=== PATIENT | female | born 1995 | race Caucasian/White ===

== ENCOUNTER 2018-04-26 14:34 | Emergency (ER) | payer OTHER ==
[~2018-04-26] VITALS: Ht 165.1 cm; Wt 59.0 kg
[2018-04-26] MEDS ORDERED: PHENERGAN 25 MG25 M1 PO (16:42)
[2018-04-26] MEDS ORDERED: NAPROSYN500 MG PO (16:42)
[2018-04-26 17:09] VITALS: BP 118/75
== END 2018-04-26 17:11 | disposition home or self-care (01) ==
LOC: ER 14:34
DX: G43.809 Other migraine, not intractable, without status migrainosus (principal)